=== PATIENT | female | born 2000 | race Two or more races ===

== ENCOUNTER 2020-01-01 17:23 | Inpatient (IN) | payer OTHER ==
[~2020-01-01] VITALS: Ht 160 cm; Wt 62.6 kg
[2020-01-09] MEDS ORDERED: PRENATAL + DHA1 EAC1 (08:13)
== END 2020-01-14 17:30 | disposition home or self-care (01) | DRG 832 ==
LOC: LDR 17:23 → OB/GYN 01-02 10:52
PROVIDERS: ADMIT Obstetrics & Gynecology; ATTEND Obstetrics & Gynecology
PROC: 4A1HXFZ Monitoring of Products of Conception, Cardiac Rhythm, External Approach (ICD-10-PCS; principal; 2020-01-01)
PROC: BY4FZZZ Ultrasonography of Third Trimester, Single Fetus (ICD-10-PCS; 2020-01-02)
DX: O60.03 Preterm labor without delivery, third trimester (principal); O26.873 Cervical shortening, third trimester; Z3A.32 32 weeks gestation of pregnancy

== ENCOUNTER → 2023-12-06 | Emergency (ER) | payer OTHER ==
[~2023-12-06] VITALS: Ht 160 cm; Wt 57.2 kg
[~2023-12-06] MED LIST: PRENATAL + DHA1 EAC1
[2023-12-06 11:28] LABS: HEMATOCRIT 32.2 % (36.0-45.00); HEMOGLOBIN 10.8 g/dL (12.0-15.00); MEAN CELL VOLUME 86.1 fL (80.00-100.00); MEAN CORPUSCULAR HEMOGLOBIN 28.9 pg (27.00-32.0); MEAN CORPUSCULAR HGB CONC 33.5 g/dl (32.0-36.0); PLATELET COUNT 195 K/uL (150-450); RED BLOOD COUNT 3.74 M/uL (4.00-6.00); RED CELL DISTRIBUTION WIDTH 13.8 % (11.5-14.5)
[2023-12-06 11:29] LABS: URINE BILIRRUBIN NEGATIVE (NEGATIVE); URINE BLOOD NEGATIVE; URINE GLUCOSE NEGATIVE (NEGATIVE); URINE KETONE NEGATIVE (NEGATIVE); URINE LEUKOCYTE NEGATIVE; URINE NITRATE NEGATIVE; URINE PROTEIN NEGATIVE (NEGATIVE)
[2023-12-06 11:35] LABS: URINE BACTERIA 1743.6 uL (0.0-1933); URINE EPITHELIAL CELLS 98.7 uL (0.0-38.8); URINE RBC 10.8 uL (0.0-20.8)
[2023-12-06 11:39] LABS: URINE APPEARANCE CLEAR; URINE CAST 0.15 uL (0.0-1.40); URINE COLOR YELLOW
== END | disposition left against medical advice (07) ==
LOC: ER 10:17
PROVIDERS: General Practice
DX: O20.9 Hemorrhage in early pregnancy, unspecified (principal); Z3A.09 9 weeks gestation of pregnancy